=== PATIENT | male | born 1960 | race Caucasian/White ===

== ENCOUNTER → 2017-01-13 | Outpatient (CLI) | payer BC ==
--- NOTE | 2017-01-13 14:40 | RADIOLOGY REPORT (SQ) ---
EXAM DESCRIPTION: NM BONE SCAN LIMITED COMPLETED DATE/TIME: 01/13/2017 1:36 pm REASON FOR STUDY: CHONDROCOSTAL JUNCTION SYNDROME (TIETZE) M94.0 CHONDROCOSTAL JUNCTION SYNDROME TI ETZE COMPARISON: No available imaging studies for comparison. RADIONUCLIDE AND DOSE: 22 millicuries Tc99m MDP. The route of agent administration: Intravenous. ADDITIONAL DRUGS AND DOSES: None. TECHNIQUE: Routine delayed images at 3 hours post radionuclide injection acquired of the bony skelet on anterior posterior, MAYER, DUTCH, RPO, LPO projections and additional focused images as needed. LIMITATIONS: None. FINDINGS: Bone scan over the thorax. No abnormal increased uptake over the lower cervical and thora cic spine, bilateral shoulders, or ribs. No ectopic soft tissue activity. IMPRESSION: NORMAL BONE SCAN OF THE CHEST. COMMENT: PQRS [id number]: Current bone scan is compared with any available plain radiographs, prior bone scans, and CT/MRI. TECHNICAL DOCUMENTATION: JOB ID: [id number] [employer]- All Rights Reserved
== END ==
LOC: RAD 08:58
PROVIDERS: ATTEND Physician Assistant
DX: M94.0 Chondrocostal junction syndrome [Tietze] (principal)
CPT/HCPCS: 78305; A9561; Q9969